=== PATIENT | female | born 2000 | race American Indian/Alaskan Native ===

== ENCOUNTER 2021-06-03 02:22 | Emergency (ER) | payer OTHER ==
[~2021-06-03] VITALS: Ht 175.3 cm; Wt 69.4 kg
[2021-06-03 03:19] LABS: PLATELET COUNT 351 K/uL (152-353)
[2021-06-03 03:28] LABS: POTASSIUM 3.4 mmol/L (3.6-5.2); SODIUM 135 mmol/L (136-145)
[2021-06-03 04:50] VITALS: BP 104/64; TEMP 99.4
== END 2021-06-03 04:50 | disposition home or self-care (01) ==
LOC: ED 02:22
PROVIDERS: Emergency Medicine
DX: N39.0 Urinary tract infection, site not specified (principal)
CPT/HCPCS: 36415; 80053; 81000; 84702; 85027; 87077; 87086; 87088; 87186; 99283